=== PATIENT | female | born 1995 | race Caucasian/White ===

== ENCOUNTER 2017-04-04 08:10 | Emergency (ER) | payer OTHER ==
[~2017-04-04] VITALS: Ht 170.2 cm; Wt 132.0 kg
[~2017-04-04 08:10] MED LIST: CIPRO500 MG PO; ENDOCET 5-3251 EACH PO; LASIX20 MG PO; NORCO 5/3251 TABLET PO; PRENATAL TABLE1 EAC3 PO
[2017-04-04 08:49] LABS: HEMATOCRIT 40.6 % (36.0-46.0); MCHC 31.3 G/DL (30.0-36.0); MCV 80.1 FL (83-99); PLATELET COUNT 195 K/uL (156-360); RBC DIS.WIDTH-CV 14.2 % (11.8-14.6); RBC DIS.WIDTH-SD 41.1 % (39-53); RED BLOOD COUNT 5.07 M/uL (3.80-5.20); WHITE BLOOD COUNT 8.3 K/uL (4.1-10.2)
[2017-04-04 09:25] LABS: QUANTITATIVE HCG < 4.0 MIU/ML
[2017-04-04 09:46] LABS: ANION GAP 9 MEQ/L (2-14); CHLORIDE 106 MEQ/L (99-109); POTASSIUM 4.7 MEQ/L (3.7-5.4); SAMPLE HEMOLYSIS CHECK 0; SAMPLE ICTERIC CHECK 0; SAMPLE LIPEMIA CHECK 0; SODIUM 139 MEQ/L (136-147); TOTAL BILIRUBIN 0.3 MG/DL (0.0-1.0)
[2017-04-04 09:52] LABS: ALKALINE PHOSPHATASE 75 IU/L (3-129); GFR ESTIMATE (CALCULATED) > 59 mL/min/; GLUCOSE 105 mg/dL (70-99); UREA NITROGEN (BUN) 12 mg/dL (9-23)
[2017-04-04 10:46] LABS: ADD MIUA? YES; BILIRUBIN NEGATIVE; BLOOD NEGATIVE; COLOR YELLOW ((YELLOW)); GLUCOSE (STRIP) NEGATIVE; KETONES NEGATIVE; LEUKOCYTES NEGATIVE; NITRITE NEGATIVE; PROTEIN (STRIP) NEGATIVE; UROBILINOGEN 0.2 MG/DL (0.2-1.0)
[2017-04-04 10:54] LABS: BACTERIA RARE /HPF; EPITHELIAL CELLS 1+ /HPF; HYALINE CASTS 0-5 /LPF; MUCUS TRACE /LPF; RED BLOOD CELLS 0-5 /HPF (0-5); UCUL ADDED? NO; WHITE BLOOD CELLS 0-5 /HPF (0-5)
[2017-04-04 11:39] LABS: LIPASE 12 U/L (1.0-51.0)
[2017-04-04] MEDS ORDERED: BENTYL20 MG PO (11:53)
[2017-04-04] MEDS ORDERED: ZOFRAN ODT4 MG PO (11:53)
[2017-04-04 12:02] VITALS: BP 134/60
== END 2017-04-04 12:03 | disposition home or self-care (01) ==
LOC: EME 08:10
DX: R11.2 Nausea with vomiting, unspecified (principal); R19.7 Diarrhea, unspecified; Z87.442 Personal history of urinary calculi; Z90.49 Acquired absence of other specified parts of digestive tract
CPT/HCPCS: 80053; 81003; 83690; 84702; 85027; 99281; 99284